=== PATIENT | female | born 2000 | race Caucasian/White ===

== ENCOUNTER 2023-10-04 23:32 | Emergency (ER) | payer OTHER ==
[2023-10-04 23:42] VITALS: TEMP 98.4; BMI 34.5
[2023-10-05] MEDS ORDERED: ACETAMINOPHEN 325 MG TABLET (FP) ONE (01:16)
[2023-10-05] MEDS: ACETAMINOPHEN 325 MG TABLET (FP) PO ONE (01:18)
[2023-10-05 01:34] VITALS: BP 118/84; PULSE 91; RESP 16
== END 2023-10-05 01:50 | disposition home or self-care (01) ==
LOC: JER 23:32
DX: S01.512A Laceration without foreign body of oral cavity, initial encounter (principal); S00.411A Abrasion of right ear, initial encounter; Y04.0XXA Assault by unarmed brawl or fight, initial encounter
CPT/HCPCS: 70450-TC; 70486-TC; 84703; 99284-25